=== PATIENT | female | born 1950 | race Caucasian/White ===

== ENCOUNTER → 2022-09-21 | Outpatient (CLI) | payer MEDICARE ==
[~2022-09-21] MED LIST: ASPI81CH; CLON.1; METF500 PO; NIFE60ER; TRIA50
== END | disposition home or self-care (01) ==
LOC: LAB SHORT 13:30 → LAB 13:30
DX: L03.032 Cellulitis of left toe (principal)
CPT/HCPCS: 87070; 87205

== ENCOUNTER 2023-11-21 08:21 | Observation (INO) | payer MEDICARE, OTHER ==
[~2023-11-21] VITALS: Ht 152.4 cm; Wt 69.4 kg
[2023-11-21] MEDS ORDERED: Ondansetron HCl 2 MG / ML 2ML Vial IV ONE (08:35)
[2023-11-21] MEDS ORDERED: NS 1,000 ML IV SCH ×2 (08:35→09:35)
[2023-11-21] MEDS ORDERED: ATOR10 PO (08:40)
[2023-11-21] MEDS ORDERED: Ketorolac Tromethamine 15mg Vial IV ONE (08:45)
[2023-11-21 08:59] LABS: BASOPHILS ABSOLUTE AUTO 0.04 K/mm3 (0.00-0.23); BASOPHILS PERCENT AUTO 0 % (0-2); EOSINOPHILS PERCENT AUTO 0 % (0-6); Hematocrit 41.6 % (33.0-51.0); Hemoglobin 14.1 g/dL (11.5-16.0); IMMATURE GRAN PERCENT AUTO 1 % (0-1); LYMPHOCYTES ABSOLUTE AUTO 0.42 K/mm3 (0.84-5.20); LYMPHOCYTES PERCENT AUTO 2 % (21-46); MONOCYTES ABSOLUTE AUTO 1.19 K/mm3 (0.16-1.47); MONOCYTES PERCENT AUTO 6 % (4-13); Mean Corpuscular HGB 29.4 pg (26.0-34.0); Mean Corpuscular HGB Conc 33.9 g/dL (31.5-36.5); Mean Corpuscular Volume 87 fL (80-100); Mean Platelet Volume 11.3 fL (9.1-12.4); NEUTROPHILS ABSOLUTE AUTO 16.87 K/mm3 (1.96-9.15); NEUTROPHILS PERCENT AUTO 91 % (41-73); Platelet Count 306 K/mm3 (150-400); RDW Coefficient Variation 12.8 % (11.7-14.2); RDW Standard Deviation 40.4 fL (35.1-46.3); Red Blood Cell Count 4.79 M/mm3 (3.80-5.20); White Blood Cell Count 18.62 K/mm3 (4.00-11.30)
[2023-11-21 09:22] LABS: Albumin, Blood 3.7 g/dL (3.4-5.0); Albumin/Globulin Ratio 0.9 (0.8-1.8); Bilirubin, Total 0.6 mg/dL (0.1-1.0); Bun/Creatinine Ratio 31.5 (12.0-20.0); Calcium, Blood 9.6 mg/dL (8.5-10.1); Creatinine, Blood 0.76 mg/dL (0.40-1.00); Globulin, Blood 4.3 g/dL (2.2-4.0); Potassium, Blood 3.4 mmol/L (3.5-5.5)
[2023-11-21 09:23] LABS: BASOPHILS PERCENT MAN 0 % (0-2); EOSINOPHILS PERCENT MAN 0 % (0-6); LYMPHOCYTES ABSOLUTE MAN 0.37 K/mm3 (0.84-5.20); LYMPHOCYTES PERCENT MAN 2 % (21-46); MONOCYTES ABSOLUTE MAN 0.55 K/mm3 (0.16-1.47); MONOCYTES PERCENT MAN 3 % (4-13); NEUTROPHILS ABSOLUTE MAN 17.68 K/mm3 (1.96-9.15); SEG NEUTROPHILS PERCENT MAN 95 % (41-73); TOTAL CELLS COUNTED 100
[2023-11-21] MEDS ORDERED: Meropenem 1,000 MG in NS 100 ML IV ONE (09:35)
[2023-11-21] MEDS ORDERED: Insulin Regular 100 Unit/ML 1ML Dose SC ONE (09:55)
[2023-11-21] MEDS ORDERED: HYDROmorphone HCl/Pf 1MG SYR IV ONE (09:55)
[2023-11-21] MEDS ORDERED: HYDROmorphone HCl/Pf 1MG SYR IV PRN (11:50)
[2023-11-21] MEDS ORDERED: Prochlorperazine Edisylate 10 mg Vial IV PRN (11:50)
[2023-11-21] MEDS ORDERED: Insulin Regular 100 UNIT/ML 10ML Vial SC SCH (12:00)
[2023-11-21] MEDS ORDERED: Potassium Chl 20MEQ/Water100ML 100 ML IV ONE (13:00)
[2023-11-21 13:11] VITALS: BP 120/63
[2023-11-21 13:17] LABS: Bun/Creatinine Ratio 32.7 (12.0-20.0); Calcium, Blood 8.5 mg/dL (8.5-10.1); Creatinine, Blood 0.76 mg/dL (0.40-1.00); Potassium, Blood 3.3 mmol/L (3.5-5.5)
[2023-11-21] MEDS ORDERED: Insulin Human Lispro 100 Units/ML 3ML Syringe SC STA (13:50)
[2023-11-21] MEDS ORDERED: MetroNIDAZOLE 500 MG Tab PO SCH (14:00)
[2023-11-21] MEDS ORDERED: Lactated Ringer's 1,000 ML IV SCH ×2 (14:40→15:45)
--- NOTE | 2023-11-21 15:12 | NUR ---
CBG CBG 340, DR. SALEH NOTIFIED, NO ADDITIONAL INSULIN ORDERED AT THIS TIME, ORDERED TO RE CHECK CBG IN [address] SALEH OF RESULTS.
[2023-11-21 15:17] VITALS: BP 123/60
--- NOTE | 2023-11-21 16:31 | NUR ---
[address] [facility] [place] [place] SALEH NOTIFIED, NO NEW ORDERS RECEIVED.
[2023-11-21] MEDS ORDERED: Potassium Chl 20MEQ/Water100ML 100 ML IV STA (16:55)
[2023-11-21] MEDS ORDERED: Meropenem 1,000 MG in NS 100 ML IV SCH (17:00)
[2023-11-21 19:05] VITALS: BP 132/73
--- NOTE | 2023-11-21 19:22 | NUR ---
SHIFT SUMMARY PT A&OX4, VSS/RA/TELE NSR@82BPM, IVF/ABX PER EMAR, NPO MIDNOC FOR O.R. TOMORROW/OK TO HAVE H20 SIPS/CHIPS PRIOR, VOIDING, AMB SBA, PAIN MANAGED. REPORT TO [place].
[2023-11-21 19:23] LABS: Calcium, Blood 8.6 mg/dL (8.5-10.1); Creatinine, Blood 0.83 mg/dL (0.40-1.00); Potassium, Blood 3.4 mmol/L (3.5-5.5)
[2023-11-21] MEDS ORDERED: Insulin Glargine-Yfgn 100 Unit/mL 3 ML SYR SC SCH (21:00)
[2023-11-21] MEDS ORDERED: CeFAZolin Sodium 1,000 MG in NS 50 ML IV SCH (22:00)
[2023-11-22] VITALS (20 sets, daily range): BP systolic 96–147; BP diastolic 51–82
[2023-11-22 01:51] LABS: BASOPHILS ABSOLUTE AUTO 0.04 K/mm3 (0.00-0.23); BASOPHILS PERCENT AUTO 0 % (0-2); EOSINOPHILS PERCENT AUTO 0 % (0-6); Hematocrit 35.5 % (33.0-51.0); IMMATURE GRAN ABSOLUTE AUTO 0.17 K/mm3 (0.00-0.10); IMMATURE GRAN PERCENT AUTO 1 % (0-1); LYMPHOCYTES ABSOLUTE AUTO 0.86 K/mm3 (0.84-5.20); LYMPHOCYTES PERCENT AUTO 5 % (21-46); MONOCYTES ABSOLUTE AUTO 1.02 K/mm3 (0.16-1.47); MONOCYTES PERCENT AUTO 6 % (4-13); Mean Corpuscular HGB 29.9 pg (26.0-34.0); Mean Corpuscular HGB Conc 33.8 g/dL (31.5-36.5); Mean Corpuscular Volume 88 fL (80-100); Mean Platelet Volume 10.8 fL (9.1-12.4); NEUTROPHILS ABSOLUTE AUTO 16.24 K/mm3 (1.96-9.15); NEUTROPHILS PERCENT AUTO 89 % (41-73); Platelet Count 250 K/mm3 (150-400); RDW Coefficient Variation 13.3 % (11.7-14.2); RDW Standard Deviation 43.5 fL (35.1-46.3); Red Blood Cell Count 4.02 M/mm3 (3.80-5.20); White Blood Cell Count 18.33 K/mm3 (4.00-11.30)
[2023-11-22 01:54] LABS: Albumin, Blood 2.5 g/dL (3.4-5.0); Albumin/Globulin Ratio 0.7 (0.8-1.8); Bilirubin, Total 0.5 mg/dL (0.1-1.0); Bun/Creatinine Ratio 31.6 (12.0-20.0); Calcium, Blood 7.9 mg/dL (8.5-10.1); Creatinine, Blood 0.73 mg/dL (0.40-1.00); Globulin, Blood 3.6 g/dL (2.2-4.0); Potassium, Blood 3.3 mmol/L (3.5-5.5); Total Protein, Blood 6.1 g/dL (6.4-8.2)
[2023-11-22] MEDS ORDERED: Potassium Chloride 40 MEQ in NS 250 ML IV ONE (05:20)
--- NOTE | 2023-11-22 06:51 | NUR ---
SUMMARY PT REMAINS NPO PREOP FOR TODAY.PTS MOST RECENT CBG 232.PT ALSO HAS ADDITIONAL K RIDER INFUSING PER NEW ORDER.PT VERB ADEQUATE PAIN CONTROL AT THIS TIME.C/O NAUSEA THIS AM, BUT SHORTLY AFTER, DECLINED COMPAZINE IV STATING NAUSEA WAS IMPROVED.
[2023-11-22] MEDS ORDERED: Indocyanine Green 25 MG Vial IV ONE (09:30)
[2023-11-22] MEDS ORDERED: Lactated Ringer's 1,000 ML IV SCH (09:50)
--- NOTE | 2023-11-22 11:20 | NUR ---
PT TO OR FOR SURGERY
[2023-11-22] MEDS ORDERED: FentaNYL Citrate 50 MCG/ML 2 ML Injection IV ONE (12:00)
--- NOTE | 2023-11-22 12:00 | NUR ---
History, Chart, Medications and Allergies reviewed before start of procedure. Pre-Op teaching done. Pt verbalizes understanding. PT ARRIVED TO UNIT VIA GURN. ABLE TO TRANSFER TO R IN ROOM. GLASSES LEFT IN PT'S ROOM. HAIR TIE AND CLIP REMOVED AND RETURNED TO PT'S ROOM. PT REPORTING PAIN OF 5/10 IN ABD. ANESTHESIA ORDERED PAIN MEDICATION. SEE EMAR.
[2023-11-22] MEDS ORDERED: Bupivacaine 0.5% HCl 5 MG/ML 30MLVIAL ONE (12:04)
[2023-11-22] MEDS ORDERED: Etomidate 2MG / ML 10ML Vial ONE (12:51)
[2023-11-22] MEDS ORDERED: FentaNYL Citrate 50 MCG/ML 2 ML Injection ONE (12:52)
[2023-11-22] MEDS ORDERED: HYDROmorphone HCl/Pf 1MG SYR ONE (15:09)
[2023-11-22] MEDS ORDERED: Sugammadex Sodium 200 MG/2ML SDV (100 MG/ML) ONE (15:37)
[2023-11-22] MEDS ORDERED: HYDROcodone 5-APAP 325 TAB PO PRN (15:45)
[2023-11-22] MEDS ORDERED: HYDROmorphone HCl/Pf 1MG SYR IV PRN (15:45)
--- NOTE | 2023-11-22 16:53 | NUR ---
ARRIVAL TO UNIT PT ARRIVED TO UNIT FROM PACU ON A GROUNEY. PT SLID TO BED WELL. A&O x4; PT SLEEPY, EASILY ROUSABLE, RESPONDS TO QUESTIONS APPROPRIATELY. VSS, ON 3L NC TO MAINTAIN O2 SAT >90%. LAP SITE x3 c EXOFIN C/D/I. PT REPORTS NO N/V & PAIN TOLERABLE. PT HAD ZHU IN OR c APPROX 300 OUTPUT, NO ZHU UPON ARRIVAL TO UNIT. FAMILY AT BEDSIDE UPON ARRIVAL TO ROOM. CALL LIGHT IN REACH, BED IN LOWEST POSITION.
--- NOTE | 2023-11-22 18:37 | NUR ---
SHIFT SUMMARY POD 0 KEN ASSIST LAP RY. VSS, TELE @ SINUS RHYTHM, PT ON 2-3L O2 VIA NC TO MAINTAIN SAT >90%. TOLERATING MIN ORALS, PT DENIES N/V. PT HAS BEEN VERY SLEEPY POST-OP. LAP SITE x3 c EXOFIN C/D/I. AWAITING FIRST POST-OP VOID. PT HAS NOT AMB POST-OP R/T SLEEPING, BASELINE IND. PT REPORTS PAIN TOLERABLE, MEDICATED PER EMAR. IV FLUIDS INFUSING PER EMAR. CALL LIGHT IN REACH, BED IN LOWEST POSITION, WILL REPORT TO RUBÉN RN.
[2023-11-22] MEDS ORDERED: Insulin Glargine-Yfgn 100 Unit/mL 3 ML SYR SC SCH (21:00)
[2023-11-23 02:15] VITALS: BP 111/56
--- NOTE | 2023-11-23 04:48 | NUR ---
SHIFT SUMMARY POD1 LAP RY. X3 LAP SITES ARE C/D/I. VSS, TELE READS NSR @79. PT SLEPT WELL T/O THE NIGHT. TOLLERATING CLEAR LIQUIDS W/O N/V. PT DENIES PASSING FLATTUS. MEDICATED FOR PAIN WITH DILAUDID ONCE AND NORCO ONCE. AMBULATING TO THE BATHROOM TO VOID W/ MIN ASSIST. OVERALL NO ACUTE EVENTS NOTED. PLAN TO D/C TODAY,
[2023-11-23 04:52] LABS: BASOPHILS ABSOLUTE AUTO 0.02 K/mm3 (0.00-0.23); BASOPHILS PERCENT AUTO 0 % (0-2); EOSINOPHILS PERCENT AUTO 0 % (0-6); Hematocrit 33.4 % (33.0-51.0); Hemoglobin 10.7 g/dL (11.5-16.0); IMMATURE GRAN ABSOLUTE AUTO 0.09 K/mm3 (0.00-0.10); IMMATURE GRAN PERCENT AUTO 1 % (0-1); LYMPHOCYTES ABSOLUTE AUTO 0.77 K/mm3 (0.84-5.20); LYMPHOCYTES PERCENT AUTO 5 % (21-46); MONOCYTES ABSOLUTE AUTO 0.78 K/mm3 (0.16-1.47); MONOCYTES PERCENT AUTO 5 % (4-13); Mean Corpuscular HGB 29.4 pg (26.0-34.0); Mean Corpuscular Volume 92 fL (80-100); Mean Platelet Volume 11.3 fL (9.1-12.4); NEUTROPHILS PERCENT AUTO 89 % (41-73); Platelet Count 225 K/mm3 (150-400); RDW Coefficient Variation 13.6 % (11.7-14.2); RDW Standard Deviation 46.3 fL (35.1-46.3); Red Blood Cell Count 3.64 M/mm3 (3.80-5.20); White Blood Cell Count 15.66 K/mm3 (4.00-11.30)
[2023-11-23 05:38] LABS: Albumin/Globulin Ratio 0.6 (0.8-1.8); Bilirubin, Total 0.4 mg/dL (0.1-1.0); Bun/Creatinine Ratio 29.3 (12.0-20.0); Calcium, Blood 7.7 mg/dL (8.5-10.1); Creatinine, Blood 0.82 mg/dL (0.40-1.00); Globulin, Blood 3.5 g/dL (2.2-4.0); Potassium, Blood 4.2 mmol/L (3.5-5.5); Total Protein, Blood 5.5 g/dL (6.4-8.2)
[2023-11-23] MEDS ORDERED: Insulin Human Lispro 100 Units/ML 3ML Syringe SC SCH ×4 (07:30→11:30)
[2023-11-23 07:35] VITALS: BP 147/69
[2023-11-23] MEDS ORDERED: BASAGLAR K100 UNIT/1 SC (11:16)
[2023-11-23] MEDS ORDERED: GLUCOPHAGE1000 M1 PO (11:16)
[2023-11-23] MEDS ORDERED: HUMALOG KW100 UNIT/1 SC (11:18)
--- NOTE | 2023-11-23 12:15 | NUR ---
DISCHARGE PT EDUCATED ON AND RECEIVED PRINTED DISCHARGE INSTRUCTIONS AND VERBALIZED AN UNDERSTANDING. PT EDUCATED ON INSULIN AND DEMONSTRATED OWN INSULIN ADMINISTRATION WITH INSULIN PEN. PT REPORTS KNOWING S/S HYPOGLYCEMIA. NEW RX FAXED TO [facility] PER PT REQUEST. HARD RX FOR GLUCOMETER TO PT. PT LEFT WITH ALL PERSONAL BELONGINGS AND W/C OUT TO VEHICLE.
[2023-11-23] MEDS ORDERED: Insulin Glargine-Yfgn 100 Unit/mL 3 ML SYR SC SCH ×2 (21:00)
== END 2023-11-23 11:58 | disposition home or self-care (01) ==
LOC: ER 08:21 → SURS 08:22
PROVIDERS: Emergency Medicine; Student in an Organized Health Care Education/Training Program; Surgery; ADMIT Hospitalist
PROC: 0FT44ZZ Resection of Gallbladder, Percutaneous Endoscopic Approach (ICD-10-PCS; principal; 2023-11-22 12:30)
DX: K80.00 Calculus of gallbladder with acute cholecystitis without obstruction (principal); K82.A1 Gangrene of gallbladder in cholecystitis; K66.0 Peritoneal adhesions (postprocedural) (postinfection); E87.21 Acute metabolic acidosis; E11.65 Type 2 diabetes mellitus with hyperglycemia; E87.6 Hypokalemia; E78.00 Pure hypercholesterolemia, unspecified; I10 Essential (primary) hypertension; Z66 Do not resuscitate; Z88.0 Allergy status to penicillin; Z79.82 Long term (current) use of aspirin; Z79.84 Long term (current) use of oral hypoglycemic drugs; Z79.899 Other long term (current) drug therapy
CPT/HCPCS: 36415; 74177; 76705; 80048; 80053; 82947; 83036; 83605; 83690; 83735; 84132; 85025; 87040; 88304; 93005; 93010; 94762; 96361; 96365; 96366; 96367; 96374; 96375; 96376; 99285-25; A9270; G0378; J1170; J1815; J1885; J2185; J2405; J3010; J3480; J7030; J7050; J7120; Q9967